=== PATIENT | female | born 1950 | race Caucasian/White ===

== ENCOUNTER → 2016-11-20 | Outpatient (CLI) | payer MEDICARE, OTHER | LOC: MC.RAD 10:12 | DX: Z12.31 Encounter for screening mammogram for malignant neoplasm of breast (principal); Z85.3 Personal history of malignant neoplasm of breast; Z90.12 Acquired absence of left breast and nipple | CPT/HCPCS: G0202 ==

== ENCOUNTER → 2017-12-06 | Outpatient (CLI) | payer MEDICARE, OTHER | LOC: MC.RAD 10:49 | DX: Z12.31 Encounter for screening mammogram for malignant neoplasm of breast (principal); Z85.3 Personal history of malignant neoplasm of breast ==

== ENCOUNTER → 2018-12-07 | Outpatient (CLI) | payer MEDICARE, OTHER | LOC: MC.RAD 11:06 | DX: Z12.31 Encounter for screening mammogram for malignant neoplasm of breast (principal) ==

== ENCOUNTER → 2020-12-18 | Outpatient (CLI) | payer MEDICARE | LOC: MC.RAD 09:19 | DX: Z12.31 Encounter for screening mammogram for malignant neoplasm of breast (principal); Z90.12 Acquired absence of left breast and nipple; Z78.0 Asymptomatic menopausal state ==